=== PATIENT | male | born 1995 | race Caucasian/White ===

== ENCOUNTER 2017-12-10 06:44 | Emergency (ER) | payer MEDICAID, OTHER ==
[~2017-12-10] VITALS: Ht 177.8 cm; Wt 70.3 kg
[~2017-12-10 06:44] MED LIST: INSU100V27 SQ; INSU100V7 SQ
--- NOTE | 2017-12-10 06:55 | NUR ---
EDWIN RA39 FROM HOME C/O WITNESSED SEIZURE BY FAMILY WITH BS OF 23. PER EMS D10 AND 250CC D5W GIVEN EN ROUTE BY RA. BS IS NOW 164 PER EMS. PER EMS, PT WAS HAVING A TONIC CLONIC SEIZURE, UNKNOWN DURATION.PT STATES HE HAS A HISTORY OF TYPE 1 DIABETES AND BELIEVES HE OVER MEDICATED HIMSELF WITH HIS INSULINE. PT DENIES HAVING ANY PAIN OR TRAUMA. PT STATES HE WAS IN BED WHEN HE BEGAN HAVING A SEIZURE. -ORAL TRAUMA. PT IS AAOX4. SKIN WARM AND DRY. RESP EVEN AND UNLABORED. NO S/S OF ACUTE DISTRESS NOTED. PT PLACED ON RESOURCE ENGINEER AND POX. VSS. PT SAFETY AND COMFORT MEASURES IN PLACE. AWAITING MD FOR EVAL.
--- NOTE | 2017-12-10 06:58 | NUR ---
BEDSIDE FOR EVAL.
--- NOTE | 2017-12-10 07:10 | NUR ---
LABORATORY CALLED FOR BLOOD SPECIMEN PICKUP.
--- NOTE | 2017-12-10 07:21 | NUR ---
REPORT GIVEN TO CAROL CERVANTES FOR [facility].
[2017-12-10 07:31] LABS: CALCIUM, SERUM 8.8 mg/dL (8.5-10.1)
[2017-12-10 07:38] LABS: POTASSIUM 2.5 mmol/L (3.5-5.1)
[2017-12-10 07:43] LABS: BASOPHILS # (AUTO) 0.1 /CMM (0.0-0.2); BASOPHILS % (AUTO) 0.8 % (0.0-2.0); EOSINOPHILS % (AUTO) 4.2 % (0.0-6.0); HEMATOCRIT 45 % (39-51); LYMPHOCYTES # (AUTO) 2.7 /CMM (0.8-4.8); LYMPHOCYTES % (AUTO) 27.3 % (20.0-44.0); MEAN CORPUSCULAR HGB CONC 34 g/dl (31.0-36.0); MEAN CORPUSCULAR VOLUME 79 fL (80-96); MONOCYTES # (AUTO) 0.7 /CMM (0.1-1.30); MONOCYTES % (AUTO) 7.4 % (2.0-12.0); NEUTROPHILS % (AUTO) 60.3 % (43.0-81.0); PLATELET COUNT (AUTO) 295 /CMM (150-450); RDW COEFFICIENT OF VARIATION 13.3 (11.5-15.0); RED BLOOD CELL COUNT(AUTO) 5.64 MIL/uL (4.5-6.0); WHITE BLOOD COUNT (AUTO) 9.9 K/uL (4.3-11.0)
[2017-12-10] MEDS ORDERED: POTASSIUM CHLORIDE 10 MEQ/50 ML PREMIXED IVPB FOR PERIPHERAL LINE IV ONE (08:00)
[2017-12-10] MEDS ORDERED: POTASSIUM CHLORIDE 20 MEQ TAB.PRT.SR PO ONE ×2 (08:00→08:03)
[2017-12-10] MEDS ORDERED: POTASSIUM CL. PREMIX PERIPHER. 50 ML ONE ×2 (08:03→08:54)
--- NOTE | 2017-12-10 10:37 | NUR ---
Patient discharged to home in stable condition. Written and verbal after care instructions given. Patient verbalizes understanding of instruction.
--- NOTE | 2017-12-10 10:37 | NUR ---
IV removed. Catheter intact and site benign. Pressure and 4x4 applied to site. No bleeding noted.
[2017-12-10 10:38] VITALS: BP 120/82
== END 2017-12-10 10:53 | disposition home or self-care (01) ==
LOC: ER 06:45
DX: E11.649 Type 2 diabetes mellitus with hypoglycemia without coma (principal); E87.6 Hypokalemia; G40.909 Epilepsy, unspecified, not intractable, without status epilepticus; Z79.4 Long term (current) use of insulin
CPT/HCPCS: 36415; 80048-TC; 82962-TC; 83735-TC; 84132-TC; 85025-TC; A4606; J3480; Z7610

== ENCOUNTER 2020-07-23 03:34 | Emergency (ER) | payer MEDICAID ==
[~2020-07-23] VITALS: Ht 180.3 cm; Wt 77.1 kg
[2020-07-23 03:34] VITALS: BP 146/83
== END 2020-07-23 05:34 | disposition home or self-care (01) ==
LOC: ER 03:37
DX: S29.011A Strain of muscle and tendon of front wall of thorax, initial encounter (principal); G40.909 Epilepsy, unspecified, not intractable, without status epilepticus; E11.9 Type 2 diabetes mellitus without complications; Z79.4 Long term (current) use of insulin; X50.0XXA Overexertion from strenuous movement or load, initial encounter; Y93.89 Activity, other specified; Y92.89 Other specified places as the place of occurrence of the external cause; Y99.8 Other external cause status
CPT/HCPCS: 71045-TC